=== PATIENT | male | born 1995 | race Caucasian/White ===

== ENCOUNTER → 2017-01-01 | Outpatient (CLI) | payer OTHER ==
[~2017-01-01] MED LIST: TRAZ50TA4 PO; ZOLO100T PO
--- NOTE | 2017-01-03 20:26 | SLEEPCENT ---
DATE OF PROCEDURE: 01/01/2017 ORDERED BY: Apoorva Neves Nocturnal polysomnography was performed for evaluation of sleep apnea syndrome symptoms in this patient with a history of excessive somnolence and nonrestorative sleep. 7 hours and 47 minutes of data were reviewed. There were 422 minutes of sleep identified. Sleep latency was normal at 19 minutes. Rapid eye movement (REM) latency was mildly short at 65 minutes. Sleep architecture showed some mild fragmentation. There were 4 REM periods appreciated. Overall sleep efficiency was 91.2%. EKG showed a sinus rhythm with an average heart rate of 56 beats per minute. Rate variability was seen. Rate ranged 40-80 beats per minute. EEG showed normal waveforms for awake and sleep. There were no respiratory events identified. Snoring was seen and arousals from snoring occurred 2.7 times per hour. There were no significant oxygen desaturations. Some limb activity was appreciated. There were four trains of 30 events identified. Limb movement arousal index was mildly elevated at 7.5. IMPRESSION: 1. Mild periodic limb movement disorder (G47.61). Limb movement arousal index 7.5. 2. Snoring with snore related arousals 2.7 times per hour. RECOMMENDATIONS: Interventions to reduce the frequency of limb activity may help improve sleep architecture as may interventions to optimize upper airway tone and reduce the patient's snoring.
== END ==
LOC: M SLEEP 19:45
PROVIDERS: ATTEND Nurse Practitioner Adult Health
DX: G47.30 Sleep apnea, unspecified (principal)